=== PATIENT | male | born 1940 | race Caucasian/White ===

== ENCOUNTER 2018-05-25 07:56 | Day surgery (SDC) | payer MEDICARE ==
[2018-05-25] VITALS (7 sets, daily range): BP systolic 99–147; BP diastolic 50–72
[2018-05-25] MEDS ORDERED: PANT-47 PO (09:05)
[2018-05-25] MEDS ORDERED: VALS40TA2 PO (09:05)
[2018-05-25] MEDS ORDERED: PROC10TA10 PO (09:05)
[2018-05-25] MEDS ORDERED: ATOR20TA66 PO (09:05)
[2018-05-25] MEDS ORDERED: OLAN5TAB26 PO (09:05)
[2018-05-25] MEDS ORDERED: HYDR-565 PO (09:05)
[2018-05-25] MEDS ORDERED: IBUP-1986 PO (09:05)
[2018-05-25] MEDS ORDERED: AMLO10TA13 PO (09:05)
[2018-05-25 09:12] LABS: ALBUMIN 3.8 G/DL (3.4-5.0); ANION GAP 11 (8-16); BLOOD UREA NITROGEN 16 MG/DL (7-18); BUN/CREATININE RATIO 11.2 (5.4-32.0); CALCIUM 9.9 MG/DL (8.5-10.1); CHLORIDE 102 MMOL/L (99-107); CREATININE 1.43 MG/DL (0.60-1.10); GLUCOSE 123 MG/DL (70-104); SODIUM 141 MMOL/L (135-145); TOTAL CARBON DIOXIDE 27.8 MMOL/L (24-32); eGFR 48 ML/MIN
[2018-05-25] MEDS ORDERED: normal saline 1000ml 1,000 ML IV SCH (09:22)
[2018-05-25 09:59] LABS: PRE OP HEMATOCRIT 35.4 % (42.0-52.0); PRE OP HEMOGLOBIN 11.3 g/dL (14.0-17.9); RED BLOOD COUNT 4.43 X10'6 (4.70-6.10)
[2018-05-25 10:00] LABS: BASOPHILS # (AUTO) 0.1 X10'3 (0-0.2); BASOPHILS % (AUTO) 0.6 % (0-1); EOSINOPHILS # (AUTO) 0.4 X10'3 (0-0.9); EOSINOPHILS % (AUTO) 4.4 % (0-6); LYMPHOCYTES # (AUTO) 1.1 X10'3 (1.1-4.8); LYMPHOCYTES % (AUTO) 12.5 % (21-51); MEAN CORPUSCULAR HEMOGLOBIN 25.4 PG (27.0-31.0); MEAN CORPUSCULAR HGB CONC 31.8 % (33.0-36.5); MEAN PLATELET VOLUME 7.3 FL (7.4-10.4); MONOCYTES # (AUTO) 0.8 X10'3 (0-0.9); MONOCYTES % (AUTO) 8.7 % (2-12); NEUTROPHILS # (AUTO) 6.4 X10'3 (1.8-7.7); NEUTROPHILS % (AUTO) 73.8 % (42-75); PRE OP PLATELET COUNT 465 X10'3 (140-440); RED CELL DISTRIBUTION WIDTH 15.9 % (11.5-14.5)
[2018-05-25] MEDS ORDERED: heparin sodium, porcine/PF 100unit/ml 5ML syringe ONE (10:28)
[2018-05-25] MEDS ORDERED: midazolam 2 mg/2 ml injection ONE (10:29)
[2018-05-25] MEDS ORDERED: fentaNYL/PF 50MCG/1 ML 2ML syringe ONE (10:29)
[2018-05-25] MEDS ORDERED: LIDOcaine 1% (10mg/ml) 2ml vial ONE (11:20)
== END 2018-05-25 13:30 | disposition home or self-care (01) ==
LOC: SSTAY O 07:56
PROVIDERS: ATTEND Radiology Diagnostic Radiology
DX: C67.9 Malignant neoplasm of bladder, unspecified (principal); E11.9 Type 2 diabetes mellitus without complications; I10 Essential (primary) hypertension; E78.00 Pure hypercholesterolemia, unspecified; K21.9 Gastro-esophageal reflux disease without esophagitis; Z79.899 Other long term (current) drug therapy
CPT/HCPCS: 36415; 36561; 76937; 77001; 80048; 85025; 99152; 99153; A6219; C1788; C1894; J1642; J2250; J3010; J3490; J7030; A4620